=== PATIENT | female | born 1975 | race Caucasian/White ===

== ENCOUNTER → 2020-12-18 | Outpatient (CLI) | payer OTHER ==
--- NOTE | 2020-12-18 15:37 | REPMRS ---
Patient History The patient states she has not had a clinical breast exam in over a year. Patient is postmenopausal and is nulliparous. No known family history of cancer. Took hormonal contraceptives for 1 month. Patient states no breast complaints today. Patient has signed MRS History Sheet. Pfizer vaccine 09/29/20 right arm. 10/24/20 left arm. Digital Woman Screen Mammo: December 18, 2020 - Exam #: [id number] Bilateral CC and MLO view(s) were taken. Technologist: Lindy Olea, RT No prior studies available for comparison. FINDINGS: There are scattered fibroglandular densities. The Volpara volumetric breast density category is: B. There is no evidence of dominant mass, architectural distortion, or grouped microcalcification typical of malignancy. 3-D tomosynthesis shows no additional findings. Assessment: BI-RADS/ACR category 1 mammogram. Negative Mammogram. Recommendation Routine screening mammogram of both breasts in 1 year (for women over age 40). This patient's [facility] Lifetime Breast Cancer RIsk is estimated at 11.2 %. This mammogram was interpreted with the aid of an FDA-approved computer-aided dectection system. Electronically Signed By: Apolinar Morales MD 12/18/20 [id number]
== END ==
LOC: M WHC 14:59
PROVIDERS: ATTEND Nurse Practitioner
DX: Z12.31 Encounter for screening mammogram for malignant neoplasm of breast (principal)